=== PATIENT | male | born 1995 | race Caucasian/White ===

== ENCOUNTER 2018-01-12 02:26 | Emergency (ER) | payer OTHER ==
[~2018-01-12] VITALS: Ht 180.3 cm; Wt 77.0 kg
[2018-01-12 02:29] VITALS: Ht 180.3 cm; Wt 77.0 kg
--- NOTE | 2018-01-12 03:16 | EMERGENCY ROOM VISIT NOTE ---
History First contact with patient: 02:34 Chief Complaint: FOOT PAIN Stated Complaint: NUMB ON LEFT FOOT History of Present Illness The patient is a 22 year old male who presents to the Emergency Room with complaints of Past Medical/Surgical History Medical Problems: (1) No significant active problems Social History Smoking Status: Never Smoker Current/Historical Medications No Active Prescriptions or Reported Meds Physical Exam Vital Signs Date Time Temp Pulse Resp B/P (MAP) Pulse Ox O2 Delivery O2 Flow Rate FiO2 01/12/18 03:27 36.8 78 18 133/85 98 01/12/18 02:29 36.8 78 18 133/85 98 Room Air Departure Information Dispostion Home / Self-Care Condition GOOD Prescriptions No Active Prescriptions or Reported Meds Referrals No Doctor, Assigned (PCP) Juan Betancourt MD Patient Instructions [facility] Additional Instructions You have been treated in the Emergency Department for a foot/ankle injury. For pain control, you can use the following [id number] medicines (if >12 yo): - Regular strength (325mg/tab) Tylenol (acetaminophen) 2 tabs every 4-6 hours as needed. Do not exceed 12 tablets in a 24 hour period. Avoid taking more than 4 grams (4000 mg) of Tylenol per day. This includes any other sources of acetaminophen you may take on a regular basis. - Regular strength (200 mg/tab) Advil (ibuprofen) 1-2 tabs every 4-6 hours as needed. Do not exceed a dose of 3200 mg per day. If this is a recent injury (<24 hrs), ice can be applied to the area of pain for the first 3 days to help decrease pain and inflammation. Elevate your foot to help reduce swelling. You have been provided the number for an Orthopaedic Surgeon. You should call this number as soon as possible to establish a follow-up visit from today's Emergency Department visit. Return to the Emergency Department if your current symptoms worsen despite treatment course outlined above, or if you develop any of the following symptoms : intractable pain despite aforementioned treatment course or new onset of numbness of the foot.
--- NOTE | 2018-01-12 03:26 | EMERGENCY ROOM VISIT NOTE ---
History First contact with patient: 02:34 Chief Complaint: FOOT PAIN Stated Complaint: NUMB ON LEFT FOOT History of Present Illness The patient is a 22 year old male who presents to the Emergency Room with complaints of numbness of the outside of his left foot. The patient reports that he sprained his ankle last week. He was never seen for this. He states that he has been able to walk on the ankle normally and he no longer has any pain. He states that 30 minutes prior to arrival, he felt at the outside of his foot was numb. He describes this as a feeling like his foot fell asleep. He denies any pain at this time. He is able to move the foot and all toes normally. Review of Systems A complete 6 point review of systems was reviewed with the patient with pertinent positives and negatives as per history of present illness. All else were negative. Past Medical/Surgical History Medical Problems: (1) No significant active problems Social History Smoking Status: Never Smoker Occupation Status: [employer] student Current/Historical Medications No Active Prescriptions or Reported Meds Physical Exam Vital Signs Date Time Temp Pulse Resp B/P (MAP) Pulse Ox O2 Delivery O2 Flow Rate FiO2 01/12/18 03:27 36.8 78 18 133/85 98 01/12/18 02:29 36.8 78 18 133/85 98 Room Air Physical Exam VITALS: Vitals are noted on the nurse's note and reviewed by myself. Vital signs stable. GENERAL: This is a 22-year-old male, in no acute distress, well-developed well- nourished. SKIN: Capillary capillary refill of the left toes less than 2 seconds. MUSCULOSKELETAL: No deformity of the left foot or ankle. There is a small amount of ecchymosis noted to the left lateral ankle and foot. Full range of motion of the ankle and all toes. No tenderness to palpation. Dorsalis pedis pulse 2+. NEURO: Patient was alert and oriented to person place and time. Normal sensation of the left foot with good discrimination between light and sharp touch over all aspects of the left foot. Medical Decision & Procedures ER Provider Diagnostic Interpretation: LEFT ANKLE: No acute fractures or dislocations. 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 Otherwise no bony abnormalities. No acute fractures. Medical Decision Differential diagnosis includes nerve palsy, compartment syndrome, nerve injury , among others. The patient was evaluated as above. He presents with numbness to the lateral aspect of the left foot 1 week after an injury to the ankle. Patient describes this as a pins and needles feeling. On exam, he has good sensation to this area and is able to discriminate between light and sharp touch. Capillary refill is within 2 seconds and dorsalis pedis pulses 2+. X-ray of the left ankle and foot were obtained and interpreted by myself and reviewed by my attending as above. Patient was reassured. He was advised to elevate the foot for swelling and take ibuprofen. He was given information for orthopedic follow -up and advised to call them in the morning for an appointment. He verbalized understanding of my assessment and treatment plan and was discharged home in good condition. Medication Reconcilliation Current Medication List: was personally reviewed by me Blood Pressure Screening Patient's blood pressure: Normal blood pressure Impression Primary Impression: Numbness and tingling of foot Departure Information Dispostion Home / Self-Care Condition GOOD Prescriptions No Active Prescriptions or Reported Meds Referrals No Doctor, Assigned (PCP) Juan Betancourt MD Patient Instructions [facility] Additional Instructions You have been treated in the Emergency Department for a foot/ankle injury. For pain control, you can use the following [id number] medicines (if >12 yo): - Regular strength (325mg/tab) Tylenol (acetaminophen) 2 tabs every 4-6 hours as needed. Do not exceed 12 tablets in a 24 hour period. Avoid taking more than 4 grams (4000 mg) of Tylenol per day. This includes any other sources of acetaminophen you may take on a regular basis. - Regular strength (200 mg/tab) Advil (ibuprofen) 1-2 tabs every 4-6 hours as needed. Do not exceed a dose of 3200 mg per day. If this is a recent injury (<24 hrs), ice can be applied to the area of pain for the first 3 days to help decrease pain and inflammation. Elevate your foot to help reduce swelling. You have been provided the number for an Orthopaedic Surgeon. You should call this number as soon as possible to establish a follow-up visit from today's Emergency Department visit. Return to the Emergency Department if your current symptoms worsen despite treatment course outlined above, or if you develop any of the following symptoms : intractable pain despite aforementioned treatment course or new onset of numbness of the foot.
[2018-01-12 03:27] VITALS: BP 133/85; PULSE 78; TEMP 36.8; O2SAT 98
--- NOTE | 2018-01-12 06:39 | DIAGNOSTIC IMAGING REPORT ---
L ANKLE MIN 3 VIEWS ROUTINE, L FOOT MIN 3 VIEWS ROUTINE HISTORY: 22 years-old Male left ankle injury, foot numbness acute left foot and ankle pain status post injury. COMPARISON: None available TECHNIQUE: 3 views of the left foot and 3 views of the left ankle FINDINGS: ANKLE: Mild circumferential soft tissue swelling about the ankle. Mild dorsal spurring about the navicular. No acute fracture, dislocation or osteochondral defects identified. No opaque foreign body. FOOT: No acute fracture, dislocation, significant degenerative changes or opaque foreign body. IMPRESSION: Mild circumferential soft tissue swelling about the ankle without acute fracture or dislocation. The above report was generated using voice recognition software. It may contain grammatical, syntax or spelling errors. Electronically signed by: Ronan Hester M.D. 01/12/2018 6:38 AM Dictated Date/Time: 01/12/2018 6:35 AM
== END 2018-01-12 03:27 | disposition home or self-care (01) ==
LOC: C.EDB 02:28 → C.EDA 03:27
DX: R20.0 Anesthesia of skin (principal); Z87.828 Personal history of other (healed) physical injury and trauma